=== PATIENT | male | born 1980 | race Caucasian/White ===

== ENCOUNTER 2017-03-28 17:04 | Emergency (ER) | payer MEDICARE, OTHER ==
[2017-03-28] MEDS ORDERED: SODIUM CHLORIDE 0.9% 1,000 ML IV STA (17:27)
[2017-03-28] MEDS ORDERED: ONDANSETRON 4 MG/2 ML VIAL IVP STA ×2 (17:28→22:17)
[2017-03-28] MEDS ORDERED: HYDROmorphone 1 MG/ML 1 ML SYRINGE IVP STA ×2 (17:28→22:17)
[2017-03-28] MEDS ORDERED: RX INFO: IV CONTRAST WAS GIVEN 1 EACH MISC MISCELLANE PRN (17:31)
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
[2017-03-28 18:14] LABS: Basophils % (A) 0 %; CHCM 37.3; Eosinophils % (A) 0 %; HCT 46.1 % (39.0-53.0); HDW 2.74; HGB 16.3 gm/dL (13.0-17.5); Luc # (Auto) 0.15; Luc % (Auto) 2; Lymphocytes # (A) 1.9 k/uL (1.0-4.8); Lymphocytes % (A) 19 %; MCH 30.5 pg (25.0-35.0); MCHC 35.4 g/dL (31.0-37.0); MCV 86.1 fL (80.0-100.0); Mean Platelet Volume 6.5; Monocytes # (A) 0.7 k/uL (0-1.0); Monocytes % (A) 6 %; Neutrophils # (A) 7.4 k/uL (1.3-7.7); Neutrophils % (A) 73 %; RBC 5.36 m/uL (4.30-5.90); RDW 12.4 % (11.5-15.5); WBC 10.2 k/uL (3.8-10.6); WBC (Perox) 9.29
[2017-03-28 18:24] LABS: ALT 51 U/L (21-72); AST 35 U/L (17-59); Alkaline Phosphatase 117 U/L (38-126); Anion Gap 15 mmol/L; Blood Urea Nitrogen 15 mg/dL (9-20); Calcium 10.9 mg/dL (8.4-10.2); Carbon Dioxide 23 mmol/L (22-30); Chloride 100 mmol/L (98-107); Glucose 111 mg/dL (74-99); Non-African American GFR(MDRD) >60 (>60 ml/min/1.73 sqM); Potassium 3.6 mmol/L (3.5-5.1); Sodium 138 mmol/L (137-145); Total Bilirubin 0.6 mg/dL (0.2-1.3)
[2017-03-28] MEDS ORDERED: METOCLOPRAMIDE 5 MG/ML 2 ML VIAL IVP STA (18:31)
[2017-03-28] MEDS ORDERED: diphenhydrAMINE 50 MG/ML 1 ML VIAL IVP STA (18:31)
[2017-03-28 19:34] VITALS: RESP 18
[2017-03-28] MEDS ORDERED: ORPHENADRINE 30 MG/ML 2 ML VIAL IVP STA (19:40)
[2017-03-28] MEDS: ACETAMINOPHEN TAB 500 MG TAB PO STA ×2 (19:48→19:49)
--- NOTE | 2017-03-28 20:02 | CT ---
EXAMINATION TYPE: CT abdomen pelvis w con DATE OF EXAM: 03/28/2017 COMPARISON: NONE HISTORY: Fell yesterday in shower, landing on back. Attention to lumbar sacrum spine. CT DLP: 689.00 mGycm Automated exposure control for dose reduction was used. TECHNIQUE: Helical acquisition of images was performed from the lung bases through the pelvis. CONTRAST: Performed without Oral Contrast and with IV Contrast, patient injected with 100 mL of Omnipaque 300. FINDINGS: LUNG BASES: No significant abnormality is appreciated. LIVER/GB: No significant abnormality is appreciated. PANCREAS: No significant abnormality is seen. SPLEEN: No significant abnormality is seen. ADRENALS: No significant abnormality is seen. KIDNEYS: No significant abnormality is seen. FREE AIR: No free air is visualized. RETROPERITONEAL ADENOPATHY: None visualized REPRODUCTIVE ORGANS: No significant abnormality is seen URINARY BLADDER: No significant abnormality is seen. PELVIC ADENOPATHY: None visualized. OSSEOUS STRUCTURES: There is motion at the level of the patient's pelvis which makes evaluation for fracture of the sacrum impossible. Fusion hardware is noted the level of T12 and L1. At the level of T10 and T11 there are compression deformities. There is extensive sclerosis around the margin of the vertebral bodies. These fractures are felt to be chronic. BOWEL: No significant abnormality is seen. Large amount of stool is noted in the sigmoid colon. The appendix is visualized, and is normal. OTHER: Patient has an inferior vena cava filter. All of the struts along the base of the filter penet rate the inferior vena cava. One of them at least abuts the duodenum if not penetrates the wall. IMPRESSION: THE PATIENT MOVED WHILE THE PELVIS WAS BEING SCANNED. EVALUATION FOR A FRACTURE OF THE SACRUM OR LOWE R LUMBAR SPINE IS NOT POSSIBLE. THERE IS FELT TO BE CHRONIC COMPRESSION DEFORMITY AT THE LEVEL OF T10 AND T11. CORRELATION WITH THE S ITE OF PAIN AND PAST MEDICAL HISTORY IS RECOMMENDED.
[2017-03-28 22:23] VITALS: BP 126/61; PULSE 89
[2017-03-28 22:59] VITALS: TEMP 97.6
== END 2017-03-28 22:59 ==
LOC: EC 17:04
DX: S34.109A Unspecified injury to unspecified level of lumbar spinal cord, initial encounter (principal); E53.8 Deficiency of other specified B group vitamins; G32.0 Subacute combined degeneration of spinal cord in diseases classified elsewhere; R20.2 Paresthesia of skin; R11.2 Nausea with vomiting, unspecified; R53.1 Weakness; Z53.29 Procedure and treatment not carried out because of patient's decision for other reasons; W01.0XXA Fall on same level from slipping, tripping and stumbling without subsequent striking against object, initial encounter; Y93.E1 Activity, personal bathing and showering; Y92.009 Unspecified place in unspecified non-institutional (private) residence as the place of occurrence of the external cause
CPT/HCPCS: 51798; 80053; 83690; 85025; 74177; 99285; 96374; 96375 ×4; 96376 ×2; 96361 ×5; J1200; J2360; J2765; J2405; J1170; Q9967